=== PATIENT | male | born 1995 | race Caucasian/White ===

== ENCOUNTER 2016-11-10 22:17 | Emergency (ER) | payer BC, MEDICAID ==
[~2016-11-10] VITALS: Ht 172.7 cm; Wt 74.8 kg
--- NOTE | 2016-11-10 22:27 | NUR ---
PT ON [facility], MONITOR SHOWS SINUS TACH AT 124, [employer] AT THE BEDSIDE. PT COOPERATIVE, HOWEVER VERY SPASTIC-UNABLE TO STAY STILL.
[2016-11-10] MEDS ORDERED: LORAZEPAM 0.5 MG TABLET PO ONE (22:30)
--- NOTE | 2016-11-10 22:36 | NUR ---
XRAY DONE, [facility] PO ADMINISTERED, MONITOR SHOWS SINUS TACH AT 117, PO2=99% ON ROOM AIR.
[2016-11-10] MEDS ORDERED: LORAZEPAM 1 MG TABLET ONE (22:45)
--- NOTE | 2016-11-10 23:58 | NUR ---
PT ON [facility], MONITOR SHOWS HR AT 92, PT COVERED WITH BLANKET AND WATER AT THE BEDSIDE.
--- NOTE | 2016-11-11 01:52 | NUR ---
PT WITH BOTH EYES CLOSED, SLIGHT MOVING NOTED.
--- NOTE | 2016-11-11 06:24 | NUR ---
PT D/C'D, ACI GIVEN AND HUBERT BANDAGE GIVEN. P[T AMBULATED W/O DIFF/TOOK ALL BHELONGINGS.
[2016-11-11 06:53] VITALS: BP 129/66
== END 2016-11-11 06:56 | disposition home or self-care (01) ==
LOC: ER 22:20
DX: F15.10 Other stimulant abuse, uncomplicated (principal); S93.402A Sprain of unspecified ligament of left ankle, initial encounter; X58.XXXA Exposure to other specified factors, initial encounter; Y93.89 Activity, other specified; Y99.8 Other external cause status; Y92.89 Other specified places as the place of occurrence of the external cause
CPT/HCPCS: 73610; A4663